=== PATIENT | male | born 1945 | race Caucasian/White ===

== ENCOUNTER 2024-10-20 19:03 | Observation (INO) | payer MEDICARE, OTHER ==
[~2024-10-20] VITALS: Ht 188 cm; Wt 76.5 kg
[~2024-10-20 19:03] MED LIST: ASPI325 PO; Aspir 8181 MG PO; Percocet 5-3251 EACH PO
[2024-10-20] MEDS ORDERED: Pantoprazole Sodium 40 MG Injection IV ONE (19:40)
[2024-10-20 19:48] LABS: BASOPHILS ABSOLUTE AUTO 0.08 K/mm3 (0.00-0.23); BASOPHILS PERCENT AUTO 1 % (0-2); EOSINOPHILS ABSOLUTE AUTO 0.03 K/mm3 (0.00-0.68); EOSINOPHILS PERCENT AUTO 0 % (0-6); Hematocrit 23.7 % (37.0-53.0); Hemoglobin 6.3 g/dL (13.5-17.5); IMMATURE GRAN ABSOLUTE AUTO 0.03 K/mm3 (0.00-0.10); IMMATURE GRAN PERCENT AUTO 0 % (0-1); LYMPHOCYTES ABSOLUTE AUTO 0.99 K/mm3 (0.84-5.20); LYMPHOCYTES PERCENT AUTO 12 % (21-46); MONOCYTES ABSOLUTE AUTO 0.89 K/mm3 (0.16-1.47); MONOCYTES PERCENT AUTO 11 % (4-13); Mean Corpuscular HGB 18.9 pg (26.0-34.0); Mean Corpuscular HGB Conc 26.6 g/dL (31.5-36.5); Mean Corpuscular Volume 71 fL (80-100); Mean Platelet Volume 10.5 fL (9.1-12.4); NEUTROPHILS ABSOLUTE AUTO 5.99 K/mm3 (1.96-9.15); NEUTROPHILS PERCENT AUTO 75 % (41-73); NRBC ABSOLUTE 0.05 K/mm3 (0.00-0.02); NRBC Auto 0.6 /100 WBC (0.0-0.2); Platelet Count 371 K/mm3 (150-400); RDW Coefficient Variation 19.3 % (11.7-14.2); Red Blood Cell Count 3.33 M/mm3 (4.30-5.90); White Blood Cell Count 8.01 K/mm3 (4.00-11.30)
[2024-10-20 20:00] LABS: Albumin, Blood 3.7 g/dL (3.4-5.0); Albumin/Globulin Ratio 0.9 (0.8-1.8); Bilirubin, Direct 0.3 mg/dL (0.0-0.3); Bilirubin, Total 0.7 mg/dL (0.1-1.0); Bun/Creatinine Ratio 24.7 (12.0-20.0); Creatinine, Blood 0.89 mg/dL (0.60-1.20); Globulin, Blood 3.9 g/dL (2.2-4.0); Potassium, Blood 4.2 mmol/L (3.5-5.5); Total Protein, Blood 7.6 g/dL (6.4-8.2)
[2024-10-20 20:04] LABS: International Normalized Ratio 1.3; Prothrombin Time Results 13.6 Sec (9.7-11.5)
[2024-10-20] MEDS ORDERED: NS 1,000 ML IV ONE (21:30)
[2024-10-20] MEDS ORDERED: Albuterol 2.5 MG/3 ML VIAL INH PRN (21:55)
[2024-10-20] MEDS ORDERED: Ondansetron HCl 2 MG / ML 2ML Vial IV PRN (21:55)
[2024-10-20] MEDS ORDERED: FLU VACC TS2024-25(6MOS UP)/PF 45 MCG/0.5 ML SYRINGE IM ONE (21:55)
[2024-10-20 22:01] LABS: IMMATURE RETIC FRACTION 28.7 % (2.3-16.0); RETIC HGB EQUIVALENT 15.5 pg (28.20-36.60); RETICULOCYTE ABSOLUTE 0.0815 M/mm3 (0.0200-0.1100); RETICULOCYTE COUNT PERCENT 2.47 % (0.50-2.50)
[2024-10-20 22:40] LABS: Percent Saturation 3.2 % (20.0-50.0)
[2024-10-20 23:31] LABS: Influenza A, PCR NEGATIVE (NEGATIVE); Influenza B, PCR NEGATIVE (NEGATIVE); Resp Syncytial Virus, PCR NEGATIVE (NEGATIVE); SARS-Cov-2 (COVID-19) PCR, MMC NEGATIVE (NEGATIVE)
[2024-10-21] VITALS (9 sets, daily range): BP systolic 93–113; BP diastolic 68–80
[2024-10-21] MEDS ORDERED: B-12500 MC2 PO (02:06)
[2024-10-21] MEDS ORDERED: FERSU300 PO (02:06)
[2024-10-21] MEDS ORDERED: FOLI1 PO (02:07)
[2024-10-21] MEDS ORDERED: ASCO500 PO (02:07)
--- NOTE | 2024-10-21 04:45 | NUR ---
NOC SUMMARY- PT ARRIVED TO ROOM IN NO DISTRESS. PT DOES EXPERIENCE DYSPNEA ON MINIMAL EXERTION. PT HAS DENIED AND DISCOMFORT OR N/V. PT TOLERATED TRANSFUSIONS WELL. PT IS VOIDING VIA URINAL. PT IN GOOD SPIRITS THIS AM. CALL LIGHT IN REACH AND BED ALARM ON.
[2024-10-21 05:51] LABS: Hematocrit 25.7 % (37.0-53.0); Hemoglobin 7.4 g/dL (13.5-17.5); Mean Corpuscular HGB 21.1 pg (26.0-34.0); Mean Corpuscular HGB Conc 28.8 g/dL (31.5-36.5); Mean Corpuscular Volume 73 fL (80-100); Mean Platelet Volume 10.2 fL (9.1-12.4); NRBC ABSOLUTE 0.06 K/mm3 (0.00-0.02); NRBC Auto 0.7 /100 WBC (0.0-0.2); Platelet Count 286 K/mm3 (150-400); RDW Standard Deviation 52.5 fL (35.1-46.3); White Blood Cell Count 8.32 K/mm3 (4.00-11.30)
[2024-10-21 06:26] LABS: Albumin, Blood 3.1 g/dL (3.4-5.0); Albumin/Globulin Ratio 0.9 (0.8-1.8); Bilirubin, Total 1.8 mg/dL (0.1-1.0); Bun/Creatinine Ratio 25.5 (12.0-20.0); Calcium, Blood 8.3 mg/dL (8.5-10.1); Creatinine, Blood 0.78 mg/dL (0.60-1.20); Globulin, Blood 3.4 g/dL (2.2-4.0); Potassium, Blood 3.6 mmol/L (3.5-5.5); Total Protein, Blood 6.5 g/dL (6.4-8.2)
[2024-10-21] MEDS ORDERED: Folic Acid 1 MG in NS 50 ML IV SCH (09:00)
[2024-10-21] MEDS ORDERED: Cyanocobalamin 1000 MCG/ML 1ML Vial IM SCH (09:00)
[2024-10-21] MEDS ORDERED: Iron Dextran 50 MG / ML 2ML Vial IV ONE (10:00)
[2024-10-21] MEDS ORDERED: Iron Dextran 975 MG in NS 250 ML IV ONE (11:00)
--- NOTE | 2024-10-21 17:34 | NUR ---
SHIFT SUMMARY PT IS A/OX4, SBA W/ FWW AND GB. PT IS IMPULSIVE, BED ALARM ON. PT DOES HAVE DYSPNEA W/ EXERTION, PRN BREATHING TREATMENTS GIVEN PER RT. VSS, PT IS HYPOTENSIVE W/ SYSTOLIC 90-110, MAP >65 AND PT DENIES DIZZINESS. IRON GIVEN ORDERED W/ NO REACTION SYMPTOMS NOTED. PT STATES SYMPTOMS HAVE NOT WORSENED SINCE ADMISSION. NO DARK STOOLS NOTED THIS SHIFT, PT VOIDING APPROPRIATELY IN URINAL. FAMILY AT BEDSIDE MOST OF SHIFT. PT CALLING APPROPRIATELY.
--- NOTE | 2024-10-22 04:29 | NUR ---
PT ARRIVED TO [facility] VIA HOSPITAL BED. ON RA. CALL LT PLACED WITHIN REACH. BED ALARM ON.
--- NOTE | 2024-10-22 04:29 | NUR ---
PT TRANSFERRED TO 326 DUE TO NEED FOR SURGICAL BED AVAILABLE.NO DISTRESS,TRANSFERRED PER BED.
[2024-10-22 04:32] VITALS: BP 99/70
[2024-10-22 04:47] LABS: BASOPHILS ABSOLUTE AUTO 0.11 K/mm3 (0.00-0.23); BASOPHILS PERCENT AUTO 1 % (0-2); EOSINOPHILS ABSOLUTE AUTO 0.26 K/mm3 (0.00-0.68); EOSINOPHILS PERCENT AUTO 3 % (0-6); Hematocrit 24.9 % (37.0-53.0); Hemoglobin 7.2 g/dL (13.5-17.5); IMMATURE GRAN ABSOLUTE AUTO 0.08 K/mm3 (0.00-0.10); IMMATURE GRAN PERCENT AUTO 1 % (0-1); LYMPHOCYTES ABSOLUTE AUTO 1.16 K/mm3 (0.84-5.20); LYMPHOCYTES PERCENT AUTO 14 % (21-46); MONOCYTES ABSOLUTE AUTO 1.25 K/mm3 (0.16-1.47); MONOCYTES PERCENT AUTO 15 % (4-13); Mean Corpuscular HGB 21.1 pg (26.0-34.0); Mean Corpuscular HGB Conc 28.9 g/dL (31.5-36.5); Mean Corpuscular Volume 73 fL (80-100); Mean Platelet Volume 10.5 fL (9.1-12.4); NEUTROPHILS ABSOLUTE AUTO 5.61 K/mm3 (1.96-9.15); NEUTROPHILS PERCENT AUTO 66 % (41-73); NRBC Auto 1.2 /100 WBC (0.0-0.2); Platelet Count 277 K/mm3 (150-400); RDW Coefficient Variation 19.9 % (11.7-14.2); RDW Standard Deviation 51.3 fL (35.1-46.3); Red Blood Cell Count 3.42 M/mm3 (4.30-5.90); White Blood Cell Count 8.47 K/mm3 (4.00-11.30)
[2024-10-22 05:07] LABS: Bun/Creatinine Ratio 17.5 (12.0-20.0); Calcium, Blood 8.1 mg/dL (8.5-10.1); Creatinine, Blood 0.86 mg/dL (0.60-1.20); Potassium, Blood 3.1 mmol/L (3.5-5.5)
[2024-10-22] MEDS ORDERED: FERSU300 PO (05:59)
[2024-10-22] MEDS ORDERED: B-121000 MC7 PO (06:00)
[2024-10-22] MEDS ORDERED: ASCO500 PO (06:00)
[2024-10-22] MEDS ORDERED: FOLI1 PO (06:00)
--- NOTE | 2024-10-22 06:03 | NUR ---
SHIFT SUMMARY: TRANSFER FROM RM 211 AT 0430. ALERT AND ORIENTED X 4. [place]. ON RA. SOB WITH ACTIVITY. CAN BE IMPULSIVE AT TIMES, BED ALARM ON. HGB 7.2, HCT 24.9. HAS RECEIVED TWO UNITS THIS ADMISSION. PT DOES CALL APPROPRIATELY. WILL CONTINUE TO PROVIDE CARE UNTIL SHIFT REPORT TO ONCOMING NURSE. CALL LT IN REACH. BED ALARM ON.
[2024-10-22 07:29] VITALS: BP 111/88
[2024-10-22] MEDS ORDERED: Potassium Chloride 20 MEQ TabCR PO ONE (07:55)
[2024-10-22] MEDS ORDERED: Hair, Skin & N1 EACH PO (11:30)
--- NOTE | 2024-10-22 11:57 | NUR ---
SUMMARY/DISCHARGE PT DISCHARGED TO HOME WITH HOME HEALTH AND THE DAUGHTER, RESOURCES GIVEN TO THE DAUGHTER FROM CARE MANAGEMENT, PT TAKEN OUT SAFELY VIA WHEELCHAIR BY THE COMPLIANCE LEAD, ACCOMPANIED BY THE DAUGHTER
[2024-10-27 16:23] LABS: GASTRIC PARIETAL CELL AB,IGG 21.8 Units (0.0-24.9)
== END 2024-10-22 11:56 | disposition home health service (06) ==
LOC: ER 19:03 → ERHOLD 19:04 → SURS 19:04 → MEDS 10-22 04:29
PROVIDERS: Internal Medicine; Nurse Practitioner Acute Care; Student in an Organized Health Care Education/Training Program; ADMIT Internal Medicine
DX: D50.9 Iron deficiency anemia, unspecified (principal); J45.20 Mild intermittent asthma, uncomplicated; J90 Pleural effusion, not elsewhere classified; J98.11 Atelectasis; F17.210 Nicotine dependence, cigarettes, uncomplicated; Z79.82 Long term (current) use of aspirin
CPT/HCPCS: 0241U; 36415; 36430; 74177; 80048; 80053; 82248; 82272; 82607; 82728; 82746; 83036; 83516; 83540; 83550; 85025; 85027; 85045; 85610; 86850; 86900; 86901; 86923; 93005; 93010; 94640; 94664; 94760; 96365; 96367; 96372; 96375; 96376; 99285-25; A9270; G0378; J1750; J2470; J3420; J7030; J7050; P9016; Q9967

== ENCOUNTER 2024-10-25 10:53 | Inpatient (IN) | payer MEDICARE, OTHER ==
[~2024-10-25] VITALS: Ht 182.9 cm; Wt 73.0 kg
[~2024-10-25 10:53] MED LIST changes: +ASCO500 PO; +B-121000 MC7 PO; +B-12500 MC2 PO; +FERSU300 PO; +FOLI1 PO; +Hair, Skin & N1 EACH PO
[2024-10-25] MEDS ORDERED: Ipratropium/Albuterol SulF 2.5-0.5MG/3 ML Amp INH PRN (11:15)
[2024-10-25 11:40] LABS: BASOPHILS ABSOLUTE AUTO 0.13 K/mm3 (0.00-0.23); BASOPHILS PERCENT AUTO 1 % (0-2); EOSINOPHILS PERCENT AUTO 1 % (0-6); Hematocrit 30.8 % (37.0-53.0); Hemoglobin 8.4 g/dL (13.5-17.5); IMMATURE GRAN ABSOLUTE AUTO 0.16 K/mm3 (0.00-0.10); IMMATURE GRAN PERCENT AUTO 1 % (0-1); LYMPHOCYTES ABSOLUTE AUTO 0.89 K/mm3 (0.84-5.20); LYMPHOCYTES PERCENT AUTO 6 % (21-46); MONOCYTES ABSOLUTE AUTO 1.61 K/mm3 (0.16-1.47); MONOCYTES PERCENT AUTO 11 % (4-13); Mean Corpuscular HGB 21.5 pg (26.0-34.0); Mean Corpuscular HGB Conc 27.3 g/dL (31.5-36.5); Mean Corpuscular Volume 79 fL (80-100); Mean Platelet Volume 10.6 fL (9.1-12.4); NEUTROPHILS PERCENT AUTO 80 % (41-73); NRBC ABSOLUTE 0.12 K/mm3 (0.00-0.02); NRBC Auto 0.8 /100 WBC (0.0-0.2); Platelet Count 348 K/mm3 (150-400); RDW Coefficient Variation 24.4 % (11.7-14.2); RDW Standard Deviation 56.8 fL (35.1-46.3); White Blood Cell Count 15.19 K/mm3 (4.00-11.30)
[2024-10-25 11:47] LABS: Albumin, Blood 3.3 g/dL (3.4-5.0); Albumin/Globulin Ratio 0.8 (0.8-1.8); Bilirubin, Total 0.8 mg/dL (0.1-1.0); Bun/Creatinine Ratio 14.2 (12.0-20.0); Calcium, Blood 8.9 mg/dL (8.5-10.1); Creatinine, Blood 0.78 mg/dL (0.60-1.20); Potassium, Blood 3.4 mmol/L (3.5-5.5); Total Protein, Blood 7.3 g/dL (6.4-8.2)
[2024-10-25] MEDS ORDERED: Furosemide 10 MG/ML 10ML Vial IV ONE (12:45)
[2024-10-25] MEDS ORDERED: Aspirin 325 MG Tab PO ONE (13:00)
[2024-10-25] MEDS ORDERED: Magnesium Hydroxide Conc 10 ML UDC PO PRN (13:15)
[2024-10-25] MEDS ORDERED: Ondansetron HCl 2 MG / ML 2ML Vial IV PRN (13:15)
[2024-10-25] MEDS ORDERED: FLU VACC TS2024-25(6MOS UP)/PF 45 MCG/0.5 ML SYRINGE IM ONE (13:20)
[2024-10-25] MEDS ORDERED: Potassium Chloride 40 MEQ in NS 250 ML IV ONE (13:30)
[2024-10-25] MEDS ORDERED: NS 1,000 ML IV ONE (13:50)
[2024-10-25] MEDS ORDERED: Nitroglycerin Patch 0.2MG / HR TOP STA (14:25)
[2024-10-25] MEDS ORDERED: Metoprolol Tartrate 1 MG/ML 5 ML VIAL IV PRN (14:40)
[2024-10-25 14:51] LABS: Anti-Xa UFH, PHA Monitoring <0.10 IU/mL; International Normalized Ratio 1.12; Prothrombin Time Results 11.9 Sec (9.7-11.5)
[2024-10-25] MEDS ORDERED: Heparin Sodium,Porcine/0.5 NS 500 ML IV SCH (15:00)
[2024-10-25] MEDS ORDERED: Metoprolol Succinate 25 MG TABCR PO SCH (15:00)
[2024-10-25] MEDS ORDERED: Aspirin 81 MG Chew PO SCH (15:00)
[2024-10-25 15:10] VITALS: BP 113/76
[2024-10-25] MEDS ORDERED: Furosemide 10 MG/ML 4ML Vial IV SCH (18:00)
--- NOTE | 2024-10-25 18:03 | NUR ---
ADMISSION/SHIFT SUMMARY: PT IS A NEW ADMIT, ARRIVING TO UNIT AT APPROX 1445. PT IS A&Ox4, COOPERATIVE W/CARE, TRANSFERS SELF F/GURNEY TO BED W/SBA, GENERALLY WEAK, BED ALARM ON FOR SAFETY. O2 SATS MAINTAINED >93% ON 4 L/MIN VIA NC, CPAP ON SB IN ROOM. RESPIRATIONS ARE EVEN AND UNLABORED BUT PT WILL HAVE EPISODES WHERE HE CLAIMS TO FEEL MORE SOB AND HAS MORE PAIN IN CHEST, RESPIRATIONS BECOME MORE LABORED, THESE EPISODES SELF RESOLVE W/NO CHANGE TO TELEMETRY OR O2 SATS. NITRO PATCH APPLIED PER EMAR. AFIB ON MONITOR, RATE CONTROLLED. PT DESCRIBES CHEST PAIN FEELING LIKE "SOMEONE IS PUSHING ON IT". TROPONINS ARE BEING TRENDED, PROVIDER NOTIFIED OF RESULTS, PLAN FOR ANGIOGRAM TOMORROW, PT TO BE NPO AT MIDNIGHT, HEPARIN INFUSION PER ORDERS. PT RESTING IN BED, CALL LIGHT IN REACH.
[2024-10-25 20:21] VITALS: BP 93/66
--- NOTE | 2024-10-25 20:37 | NUR ---
ASSUMPTION OF CARE PT SITTING UP IN BED,BEDSIDE REPORT COMPLETED WITH DAYSHIFT NURSE.PT ON 4L OF OXYGEN VIA NASAL CANNULA,HEPARIN GTT INFUSING AT 15UNITS/KG/HR AT 23.1ML/HR.TEACHING ON THE SS OF BLEEDING ANDQ6H BLOOD DRAWS COMPLETED.PT VERBALIZES UNDERSTANDING.PT DENIES PAIN,DENIES NAUSEA,DENIES CHEST PAIN,DENIES SOB AT REST,DENIES NEEDS AT THIS TIME.CALL LIGHT AND PT'S ITEMS WITHIN REACH,WILL CONTINUE TO MONITOR.
[2024-10-25] MEDS ORDERED: Ferrous Sulfate 325 MG Tab PO SCH (21:00)
[2024-10-25] MEDS ORDERED: Heparin Sodium 5000 Units/ML 1ML MDV IV ONE (23:50)
[2024-10-25] MEDS ORDERED: Dose Adjust by Pharmacy XX STA (23:52)
[2024-10-26] VITALS (9 sets, daily range): BP systolic 90–104; BP diastolic 58–78
[2024-10-26 06:27] LABS: BASOPHILS ABSOLUTE AUTO 0.09 K/mm3 (0.00-0.23); BASOPHILS PERCENT AUTO 1 % (0-2); EOSINOPHILS ABSOLUTE AUTO 0.23 K/mm3 (0.00-0.68); EOSINOPHILS PERCENT AUTO 2 % (0-6); Hematocrit 26.4 % (37.0-53.0); Hemoglobin 7.4 g/dL (13.5-17.5); IMMATURE GRAN PERCENT AUTO 1 % (0-1); LYMPHOCYTES ABSOLUTE AUTO 1.32 K/mm3 (0.84-5.20); LYMPHOCYTES PERCENT AUTO 11 % (21-46); MONOCYTES ABSOLUTE AUTO 1.84 K/mm3 (0.16-1.47); MONOCYTES PERCENT AUTO 15 % (4-13); Mean Corpuscular HGB 22.2 pg (26.0-34.0); Mean Corpuscular Volume 79 fL (80-100); Mean Platelet Volume 10.4 fL (9.1-12.4); NEUTROPHILS ABSOLUTE AUTO 8.53 K/mm3 (1.96-9.15); NEUTROPHILS PERCENT AUTO 71 % (41-73); NRBC ABSOLUTE 0.06 K/mm3 (0.00-0.02); NRBC Auto 0.5 /100 WBC (0.0-0.2); Platelet Count 269 K/mm3 (150-400); RDW Coefficient Variation 26.1 % (11.7-14.2); RDW Standard Deviation 57.9 fL (35.1-46.3); Red Blood Cell Count 3.34 M/mm3 (4.30-5.90); White Blood Cell Count 12.11 K/mm3 (4.00-11.30)
[2024-10-26 06:47] LABS: Bun/Creatinine Ratio 15.7 (12.0-20.0); Calcium, Blood 8.2 mg/dL (8.5-10.1); Creatinine, Blood 0.83 mg/dL (0.60-1.20); Potassium, Blood 3.4 mmol/L (3.5-5.5)
--- NOTE | 2024-10-26 06:53 | NUR ---
SHIFT SUMMARY PT HAS BEEN SLEEPING ON/OFF,WOKE UP CONFUSED EASILY REDIRECTABLE.PT DENIES PAIN,DENIES NEEDS.WILL GIVE REPORT TO DAYSHIFT NURSE.CALL LIGHT AND PT'S ITEMS WITHIN REACH.
[2024-10-26] MEDS ORDERED: Dose Adjust by Pharmacy XX STA (07:37)
[2024-10-26] MEDS ORDERED: Potassium Chloride 40 MEQ in NS 250 ML IV ONE (07:55)
[2024-10-26] MEDS ORDERED: Multivitamins/Minerals TAB PO SCH (09:00)
[2024-10-26] MEDS ORDERED: Enoxaparin 40 MG/0.4 ML SYR SC SCH (09:00)
[2024-10-26] MEDS ORDERED: Ascorbic Acid 500 MG Tab PO SCH (09:00)
[2024-10-26] MEDS ORDERED: Cyanocobalamin 500 MCG Tab PO SCH (09:00)
--- NOTE | 2024-10-26 09:13 | NUR ---
ASSUMPTION OF CARE ASSUMED CARE OF PATIENT AT 0700, BEDSIDE SHIFT REPORT RECEIVED FROM EVE RN. PT RESTING IN BED TRANSFERED TO BEDSDIE RECLINER. PT ALERT AND ORIENTED X4. PT ANSWERS QUESTIONS APPROPRIATELY, FOLLOWS DIRECTION WHEN PROMPTED AND IS ABLE TO MAKE HIS NEEDS KNOWN. PT WEAK, MOVES EXTREMITIES EQUALLY BILATERALLY. PT 2 PERSON ASSIST. PT [place]. HR 70-80'S SINUS, MAP >65, PT DENEIS CP/PRESSURE. PT ON 4LPM VIA NC, OXYGEN SATURATION >92%. ABDOMEN SOFT, BOWEL TONES ACTIVE THROGUHOUT. PT DENIES N/V. MALE PUREWICK IN PLACE DRAINING YELLOW URINE. PIV IN PLACE TO RAC, LAC AND LFA SL. PT IN BEDSIDE RECLINER WITH CHAIR ALARM ON. CARE CONTINUES.
[2024-10-26] MEDS ORDERED: NS 500 ML IV SCH (10:15)
[2024-10-26] MEDS ORDERED: Albuterol 2.5 MG/3 ML VIAL INH PRN (11:45)
[2024-10-26] MEDS ORDERED: LORazepam 2 MG/ML 1ML Injection IV ONE (12:25)
[2024-10-26] MEDS ORDERED: Furosemide 10 MG/ML 4ML Vial IV STA (13:48)
--- NOTE | 2024-10-26 13:52 | NUR ---
PT UPDATE PT BECOMING INCREASINGLY ANXIOUS WITH WORSENING SOB. RT TO BEDSIDE TO ADMINISTER BREATHING TREATMENT. AFTER TREATMENT PT STILL COMPLAINING OF SOB, OXYGEN SATURATION >92%, LUNG SOUNDS CLEAR. CALL PLACED TO , ORDER RECEIVED FOR ATIVAN IV, SEE EMAR FOR MORE DETAILS. ATIVAN ADMINISTERED WITH NO EFFECT. PT CONTINUES TO COMPLAIN OF SOB, RESTLESS IN BED. RT CALLED FOR CPAP PLACEMENT, DR. LI CALLED, ORDERS RECEIVED FOR XRAY AND ADDITIONAL DOSE OF LASIX, SEE EMAR FOR MORE INFORMATION. BED IN LOWEST POSITION, PT DAUGHTER AT THE BEDSIDE. CARE CONTINUES.
[2024-10-26 14:40] LABS: Hematocrit 30.7 % (37.0-53.0); Hemoglobin 8.8 g/dL (13.5-17.5)
--- NOTE | 2024-10-26 16:38 | NUR ---
CLARIFICATION OF CODE STATUS AND SUPPORTIVE VISIT LISSY SITTING UP IN CHAIR WITH O2 VIA NC IN PLACE. HE IS A/O X4. ABLE TO MAKE NEEDS KNOWN. RESP EUL. AFTER TALKING FOR APX 1 MIN, DYSPNEA NOTED, SPO2 UNCHANGED, 5-10 SECONDS TO RECOVER AND RESUME CONVERSATION. EDUCATION ON CPR VS DNR PROVIDED. PT ELECTED FOR DNR. REVIEWED VARIOUS LEVELS OF CARE OUTLINED ON A POLST FORM. LISSY DOES NOT WANT INTUBATION OR FEEDING TUBE. HE WANTS SELECTIVE TREATMENT. POLST FORM TO BE COMPLETED PRIOR TO D/C HOME. ORDER OBTAINED FROM PROVIDER TO CHANGE CODE STATUS FROM FULL TO DNR. ORDER PLACED ACCORDINGLY. RT IN ROOM TO SET UP CPAP. DTR, MISAEL ARREGUIN (PHONE [phone]) AT BEDSIDE FOR TODAYS VISIT. 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 PRIOR TO LAST WEEK, HE WAS WORKING, AMBULATING UNASSISTED, SHOPPING FOR HIMSELF, DRIVING AND INDEPENDENT FOR ALL ADL'S/IADL'S. PT WOULD BENEFIT FROM CONTINUING EDUCATION RE: CHF. PC TO REMAIN AVAILABLE NEEDED.
--- NOTE | 2024-10-26 16:56 | NUR ---
Patient is sitting on a chair and has a breathing mask on and he was very sleepy which made communication challenging. I spent time with his dtr, Mattie, who told me about the patient's 22 yr career, the fact that he is still working and that his spouse, Mattie's mother in 2023. He lives alone and all his grown kids do not live in the area. I learn about the patient's alevism roots, his spouse's Jehovah Witness beliefs and how he never became a Witness. I Provided therapeutic listening and a calming presence. I will continue to remian available.
--- NOTE | 2024-10-26 19:17 | NUR ---
SHIFT SUMAMRY PT RESITNG IN BED, ALERT AND ORIENTED X4. PT ASNWERS QUESITONS APPROPRAITELY, FOLLOWS DIRECTION WHEN PROMPTED AND IS ABLE TO MAKE HIS NEEDS KNOWN. PT MOVES EXTREMITIES EQUALLY BILATERALLY, AMBULATES IN THE ROOM WITH NURSE ASSIST. HR 60-80'S, PT DENIES CP/PRESSURE, MAP >65. PT ON 4LPM VIA NC, OXYGEN SATURATION >92%, PT WOB HAS IMPROVED THIS SHIFT. ABDOMEN SOFT, BOWEL TONES ACTIVE THROUGHOUT. PUREWICK IN PLACE DRAINING YELLOW URINE TO GRAVITY. PIV IN PLACE TO RAC, LAC AND LFA SL. BED IN LOWEST POSITION, CALL LIGHT WITHIN REACH. PT FAMILY AT THE BEDSIDE. CARE CONTINUES.
--- NOTE | 2024-10-26 21:39 | NUR ---
ASSUMPTION OF CARE ASSUMED CARE OF PT AT 1900,BEDSIDE REPORT COMPLETED WITH DAYSTNFT NURSE.PT SITTING UP IN BED,VISITORS AT BEDSIDE.PT DENIES PAIN,DENIES SOB,OXYGEN TITRATED DOWN TO 2L,OXYGEN SATURATION 95%.PLAN OF CARE REVIEWED WITH PT AND FAMILY.CALL LIGHT AND PT'S ITEMS WITHIN REACH.BED ALARM ACTIVATED.PT DENIES NEEDS,WILL CONTINUE TO MONITOR.
[2024-10-27 00:16] VITALS: BP 93/49
[2024-10-27 00:22] VITALS: BP 95/71
[2024-10-27 04:07] LABS: Hematocrit 29.8 % (37.0-53.0); Hemoglobin 8.5 g/dL (13.5-17.5); Mean Corpuscular HGB 22.8 pg (26.0-34.0); Mean Corpuscular HGB Conc 28.5 g/dL (31.5-36.5); Mean Corpuscular Volume 80 fL (80-100); Mean Platelet Volume 10.3 fL (9.1-12.4); NRBC ABSOLUTE 0.02 K/mm3 (0.00-0.02); NRBC Auto 0.2 /100 WBC (0.0-0.2); Platelet Count 270 K/mm3 (150-400); RDW Coefficient Variation 27.1 % (11.7-14.2); RDW Standard Deviation 63.8 fL (35.1-46.3); Red Blood Cell Count 3.72 M/mm3 (4.30-5.90); White Blood Cell Count 10.64 K/mm3 (4.00-11.30)
[2024-10-27 04:11] VITALS: BP 95/56
[2024-10-27 04:49] LABS: Bun/Creatinine Ratio 18.5 (12.0-20.0); Calcium, Blood 8.5 mg/dL (8.5-10.1); Creatinine, Blood 0.81 mg/dL (0.60-1.20); Potassium, Blood 3.3 mmol/L (3.5-5.5)
--- NOTE | 2024-10-27 06:35 | NUR ---
SHIFT SUMMARY PT HAS BEEN SLEEPING MOST OF THE NIGHT.PRN BREATHING TREATMENT GIVEN X1 FOR SOB,OXYGEN TITRATED DOWN TO 2L.PT DENIES PAIN,DENIES NEEDS AT THIS TIME.CALL LIGHT AND PT'S ITEMS WITHIN REACH.WILL GIVE DETAILED REPORT TO DAYSHIFT NURSE.
[2024-10-27 07:53] VITALS: BP 91/69
[2024-10-27 11:28] VITALS: BP 98/62
[2024-10-27] MEDS ORDERED: Potassium Chloride 20 MEQ TabCR PO ONE (12:00)
[2024-10-27] MEDS ORDERED: Sod Ferric Gluc Complx/Sucrose 125 MG in NS 100 ML IV SCH (16:00)
--- NOTE | 2024-10-27 16:54 | NUR ---
SHIFT SUMMARY: PT ALERT AND ORIENTED X3, ABLE TO FOLLOW COMMANDS AND MAKE NEEDS KNOWN. FORGETFUL AT TIMES. POOR HISTORIAN. [place]. BP AND HR STABLE. AFEBRILE. SPO2 >96% ON ROOM AIR. LUNG SOUNDS DIM IN BASES. RESPIRATIONS EVEN AND UNLABORED AT REST. ABD SOFT, NON TENDER, BOWEL SOUNDS +. PULSES STRONG AND EQUAL THROUGHOUT. PT ONE PERSON ASSIST TO AND FROM BATHROOM. BED ALARM ON FOR SAFETY. GI CONSULT PLACED THIS SHIFT FOR ANEMIA. FAMILY AT BEDSIDE THROUGHOUT THE DAY, UPDATED ON PT PLAN OF CARE. BED IN LOW, CALL LIGHT IN REACH, WILL REPORT TO ONCOMING RN.
--- NOTE | 2024-10-27 19:30 | NUR ---
ASSUMPTION OF CARE ASSUMED PT'S CARE AT 1900,BEDSIDE REPORT COMPLETED WITH PREVIOUS NURSE.VISITORS AT BEDSIDE.PT SITTING UP IN BED,ON RA.STATES THAT HE IS FEELING BETTER.PLAN OF CARE REVIEWED.PT DENIES PAIN,DENIES SOB,DENIES NEEDS.CALL LIGHT AND PT'S ITEMS WITHIN REACH.WILL CONTINUE TO MONITOR.
[2024-10-27 19:50] VITALS: BP 101/71
[2024-10-28] VITALS (10 sets, daily range): BP systolic 92–110; BP diastolic 62–77
[2024-10-28 04:44] LABS: Hematocrit 32.7 % (37.0-53.0); Hemoglobin 9.5 g/dL (13.5-17.5); Mean Corpuscular HGB 23.2 pg (26.0-34.0); Mean Corpuscular HGB Conc 29.1 g/dL (31.5-36.5); Mean Corpuscular Volume 80 fL (80-100); Mean Platelet Volume 10.3 fL (9.1-12.4); Platelet Count 308 K/mm3 (150-400); RDW Coefficient Variation 28.4 % (11.7-14.2); RDW Standard Deviation 70.1 fL (35.1-46.3); Red Blood Cell Count 4.09 M/mm3 (4.30-5.90); White Blood Cell Count 9.98 K/mm3 (4.00-11.30)
[2024-10-28 05:00] LABS: Anion Gap 11 mmol/L (3-11); Blood Urea Nitrogen 19 mg/dL (8-24); Bun/Creatinine Ratio 24.4 (12.0-20.0); CO2, Blood 26 mmol/L (21-32); Chloride, Blood 107 mmol/L (98-108); Creatinine, Blood 0.78 mg/dL (0.60-1.20); Glomerular Filtration Rate 90 (60-); Glucose, Blood 104 mg/dL (70-99); Magnesium, Blood 2.7 mg/dL (1.6-2.4); Phosphorus, Blood 3.1 mg/dL (2.5-4.9); Potassium, Blood 3.8 mmol/L (3.5-5.5); Sodium, Blood 140 mmol/L (136-145)
--- NOTE | 2024-10-28 06:41 | NUR ---
SHIFT SUMMARY PT HAS BEEN SLEEPING ON/OFF.OXYGEN SATURATION >95% ON RA,NO C/O SOB OR CHEST PAIN.HAS BEEN GETTING TO THE EDGE OF THE BED INDEPENDENTLY TO USE THE VOID IN THE URINAL.PT AWAKE,RESTING IN BED.DENIES PAIN,DENIES NEEDS AT THIS TIME.CALL LIGHT AND PT'S ITEMS WITHIN REACH.WILL PASS REPORT TO DAYSHIFT NURSE.
[2024-10-28] MEDS ORDERED: Lisinopril 5 MG Tab PO SCH (09:00)
--- NOTE | 2024-10-28 09:33 | NUR ---
DR PETERS TO BEDSIDE WHILE DOING MORNING MEDICATIONS. BP SOFT BUT STABLE. SHE WOULD LIKE TO HOLD THE MORNING LASIX AND LISINOPRIL. SHE DID OKAY TO GIVE THE 12.5 METOPROLOL AND STATED SHE WILL DISCUSS PARAMETERS W/ DR. TINEO. SEE NOTES FOR UPDATES.
[2024-10-28] MEDS ORDERED: Furosemide 10 MG / ML 2ML Vial IV SCH ×2 (09:55→18:00)
--- NOTE | 2024-10-28 16:55 | NUR ---
SHIFT SUMMARY THE PT IS A&OX3-4, BUT IS FORGETFULL AND GETTING RESTLESS IN THE ROOM. HE IS CONCRETE IN HIS THINKING AND DOES NOTE WANT HELP FROM STAFF. HE CAN GETS IRRITABLE WHEN TRYING TO EDUCATE ABOUT USING THE URINAL AND CALLING FOR HELP. THE PT WORKED WITH O.T AND P.T. AND IS A 1P SBA W/ FWW FOR STABILITY. HE HAS AMBULATED THE UNIT MULTIPLE TIMES T/O THE SHIFT. ON TELE HE IS SB/SR 50'S-80'S W/ PAC'S AND PVC'S. BP HAS BEEN SOFT BUT STABLE. DR. MARTINES ADDED PARAMETERS TO THE MEDICATIONS. HIS LASIX WAS DECREASED FROM 40MG BID TO 20MG DAILY. OUTPUT HAS NOT BEEN ACCURATE BECAUSE THE PT HAS SPILT HIS URINAL AND HAD SOME INC EPISODES. NO BOWEL MOVEMENT YET THIS SHIFT. HE HAS BEEN ON RA TODAY W/ SP02 >93%. DR. DELGADO SAW THE PT TODAY AND PLAN IS TO CONTINUE THE CLEAR LIQUID DIET UNTIL 2300 THEN HE WILL SWITCH TO WATER AND ICE ONLY. PT WILL BOWEL PREP IN THE MORNING. NPO AT 1200 1/30 FOR EGD AND COLONOSCOPY. THE PT'S DAUGHTER HAS BEEN AT BEDSIDE AND UPDATED ON CARE. NO ACUTE EVENTS. CHAIR AND BED ALARMS REMAIN INTACT. SEE NOTES FOR ANY UPDATES.
[2024-10-29] VITALS (15 sets, daily range): BP systolic 81–123; BP diastolic 58–78
[2024-10-29] MEDS ORDERED: Sodium, Potassium,Mag Sulfates 354 ML PO SCH (05:00)
--- NOTE | 2024-10-29 06:38 | NUR ---
SHIFT SUMMARY NO ACUTE EVENTS THIS SHIFT, VSS, AFEBRILE, FOLLOWS COMMANDS, ABLE TO MAKE NEEDS KNOWN, PT WOKE UP AT [address] AND SITUATION, LOOKING FOR HIS OFFICE AND NEEDING TO COMPLETE AT TASK, EASILY REORIENTED, STATES, " IM EVEN WORKING IN MY DREAMS!", SURE PREP GIVEN AT 0500, PT DRANK 100% , AND IN BATHROOM AT THIS TIME WITH NOTED LOOSE BM,
[2024-10-29 07:17] LABS: BASOPHILS ABSOLUTE AUTO 0.15 K/mm3 (0.00-0.23); BASOPHILS PERCENT AUTO 2 % (0-2); EOSINOPHILS ABSOLUTE AUTO 0.48 K/mm3 (0.00-0.68); EOSINOPHILS PERCENT AUTO 6 % (0-6); Hematocrit 40.3 % (37.0-53.0); Hemoglobin 11.7 g/dL (13.5-17.5); IMMATURE GRAN ABSOLUTE AUTO 0.04 K/mm3 (0.00-0.10); IMMATURE GRAN PERCENT AUTO 1 % (0-1); LYMPHOCYTES PERCENT AUTO 14 % (21-46); MONOCYTES ABSOLUTE AUTO 0.93 K/mm3 (0.16-1.47); MONOCYTES PERCENT AUTO 11 % (4-13); Mean Corpuscular HGB 23.4 pg (26.0-34.0); Mean Corpuscular Volume 81 fL (80-100); Mean Platelet Volume 9.8 fL (9.1-12.4); NEUTROPHILS ABSOLUTE AUTO 5.72 K/mm3 (1.96-9.15); NEUTROPHILS PERCENT AUTO 67 % (41-73); NRBC ABSOLUTE 0.02 K/mm3 (0.00-0.02); NRBC Auto 0.2 /100 WBC (0.0-0.2); Platelet Count 358 K/mm3 (150-400); RDW Coefficient Variation 29.8 % (11.7-14.2); RDW Standard Deviation 81.9 fL (35.1-46.3); Red Blood Cell Count 4.99 M/mm3 (4.30-5.90); White Blood Cell Count 8.52 K/mm3 (4.00-11.30)
[2024-10-29] MEDS ORDERED: Peg/Electrolytes 4,000 ML BTL PO SCH (08:00)
[2024-10-29 08:08] LABS: Albumin, Blood 3.5 g/dL (3.4-5.0); Albumin/Globulin Ratio 0.7 (0.8-1.8); Bilirubin, Total 0.9 mg/dL (0.1-1.0); Bun/Creatinine Ratio 18.3 (12.0-20.0); Calcium, Blood 9.9 mg/dL (8.5-10.1); Creatinine, Blood 0.82 mg/dL (0.60-1.20); Globulin, Blood 4.7 g/dL (2.2-4.0); Potassium, Blood 3.8 mmol/L (3.5-5.5); Total Protein, Blood 8.2 g/dL (6.4-8.2)
--- NOTE | 2024-10-29 09:36 | NUR ---
DR. DELGADO INFORMED THAT THE PT IS REFUSING HIS BOWEL PREP THIS MORNING. GUERRERO HARDIN RN AWARE WELL. PLAN TO KEEP PT NPO FOR EGD. THIS RN WILL LET DR. DELGADO AND GUERRERO MORGAN KNOW IF THE PT'S BOWEL BECOME CLEAR. PT AWARE THAT IS HIS BOWEL ARE NOT CLEAR HE WILL NTO RECIEVE THE COLONOSCOPY. HE IS OKAY WITH THAT AND IS STILL REFUSING BOWEL PREP.
[2024-10-29] MEDS ORDERED: Sod Phosphate/Sod Biphosphate 132 ML BTL PR ONE ×2 (14:10→15:05)
[2024-10-29] MEDS ORDERED: propofoL 50 ML IV ONE (14:40)
[2024-10-29] MEDS ORDERED: Lactated Ringer's 1,000 ML IV SCH (15:40)
[2024-10-29] MEDS ORDERED: NS 500 ML IV SCH (16:00)
[2024-10-29] MEDS ORDERED: Dopamine/Dextrose 250 ML IV SCH (16:00)
--- NOTE | 2024-10-29 16:08 | NUR ---
PT RECIEVED TWO FLEET ENEMAS PER DR. DELGADO BEFORE GOING TO THE [facility] FOR COLONOSCOPY AND EGD.
--- NOTE | 2024-10-29 16:21 | NUR ---
PT HAS 20G IV TO LEFT WRIST AND 20G IV TO LEFT AC THAT FLUSH WELL AND FLOW TO GRAVITY.
--- NOTE | 2024-10-29 16:22 | NUR ---
PT BROUGHT FROM PCU TO DAY SURGERY FOR PROCEDURE. History, Chart, Medications and Allergies reviewed before start of procedure. Lungs clear T/O to Auscultation. Patient confirms NPO status and agrees with scheduled surgery. Pre-Op teaching done. Pt verbalizes understanding. FAMILY AT BEDSIDE. PT BELONGINGS LEFT IN PERSONAL ROOM IN PCU.
--- NOTE | 2024-10-29 16:47 | NUR ---
10/29/24 1647 Marisabel Rivera 1630-MONITOR INTACT WITH CONTINUOUS PULSE OXIMETRY, CONTINUOUS END TITAL CO2, AND INTERMITTENT BLOOD PRESSURE.3-LEAD EKG REVIEWED WITH PHYSICIAN PRIOR TO START OF PROCEDURE.O2 VIA POM INTACT THROUGHOUT SEDATION/PROCEDURE.Bite Block Placed. DR. CORDERO PROVIDING ANESTHESIA. DOPAMINE DRIP STARTED @ 5 MCG/KG/IN. DEFIB PADS IN PLACE-SEE ANESTHESIA RECORD.
--- NOTE | 2024-10-29 16:49 | NUR ---
SHIF SUMMARY THE PT IS A&oX3-4, BUT CAN BUT FORGETFUL AND IS A POOR HISTORIAN. HE IS IMPULSIVE AND DOES NOT CALL APPROPRAITELY. THIS RN SAT OUTSIDE THE PT'S ROOM D/T FREQUENT NEEDS WITH THE BATHROOM. ON TELE HE HAS BEEN SR, BP SOFT BUT STABLE. HE HAS BEEN ON RA W/ SP02 >93%. WE HAVE NOT HAD MEASURED URINE OUTPUT D/T MIX W/ BOWELS AND OCCASIONAL INC. THE PT IS CURRENTLY DOWN FOR EGD AND COLONOSCOPY. FAMILY HAS BEEN IN THE ROOM AND UPDATED ON CARE. SEE NOTES FOR UPDATES.
--- NOTE | 2024-10-29 18:37 | NUR ---
PT BACK FROM COLONOSCOPY AND EGD. HE IS ON 3-4L NC TO MAINTAIN SP02 >93%, RESP RATE 12-16, HE CONVERTED FROM SR TO JUNCTIONAL AND FROM JUNCTIONAL TO AFIB WHILE IN PROCEDURE. THE PT IS CURRENTLY IN AFIB 60'S-80'S. DR. RODRIGUEZ MADE AWARE. THE PT DENIES ANY DISCOMFORTS AT THIS TIME. HE IS VERY SLEEPY AND RESTING WITH FAMILY IN THE ROOM. THE FAMILY IS HANGING OUT IN THE ROOM AND DR. DELGADO WILL ROUND WHEN HE IS DONE WITH HIS CURRENT CASE. THE PT'S BP IS SOFT, BUT STABLE AT THIS TIME. SEE NOTES FOR UPDATES.
[2024-10-30 05:00] VITALS: BP 96/74
--- NOTE | 2024-10-30 05:52 | NUR ---
SHIFT SUMMARY ASSUMED CARE OF PT AT 1900. PT IS A/OX4 BUT VERY LETHARGIC AT SHIFT CHANGE. DR DELGADO TO ROOM. EXPLAINED TO FAMILY AND PT FINDINGS OF PROCEDURE AND RESULTS. PT THEN PROCEEDED TO SLEEP T/O THE NOC UNTIL 0200 WHEN PT STOOD TO USE URINAL INDEPENDENTLY. PT BLADDER SCANNED DUE TO LIMITED OUTPUT, PT DENIES NEEDING TO UNRIATE MORE.
[2024-10-30] MEDS ORDERED: Omeprazole 20 MG CapCR PO SCH (06:00)
--- NOTE | 2024-10-30 08:15 | NUR ---
just wanted toclarify again as family is asking about hgb, dr khanna still does not want am labs
[2024-10-30 08:32] VITALS: BP 106/64
--- NOTE | 2024-10-30 10:19 | NUR ---
SPOKE WITH DR RODRIGUEZ TO CLARIFY THAT NO AM LABS WERE ORDERED, AND SHE IS OKY WITH NO AM LABS
[2024-10-30 12:55] LABS: Hematocrit 36.9 % (37.0-53.0); Hemoglobin 10.8 g/dL (13.5-17.5)
[2024-10-30] MEDS ORDERED: Lisinopril2.5 MG PO (15:05)
[2024-10-30] MEDS ORDERED: METO25ER PO (15:06)
[2024-10-30] MEDS ORDERED: ASPI81CH PO (15:06)
[2024-10-30] MEDS ORDERED: DOCU100 PO (15:07)
[2024-10-30] MEDS ORDERED: JARDIANCE10 MG PO (15:09)
[2024-10-30] MEDS ORDERED: PANT20 PO (15:10)
[2024-10-30] MEDS ORDERED: FURO20 PO (15:10)
[2024-10-30] MEDS ORDERED: SPIR25 PO (15:11)
--- NOTE | 2024-10-30 16:36 | NUR ---
MET WITH PATIENT AND FAMILY. DISCUSSED CONCERNS FOR DISCHARGE. PER FAMILY IDEAL SITUATION WOULD BE IF PATIENT MOVED TO [place] SO THEY COULD BE MORE AVALIABLE. PATIENT IS NOT WANTING TO DO THAT AT THIS TIME. DISCUSSED CODE STATUS AND FAMILY AND PATIENT WERE CLEAR THEY WANT FOR FULL CODE. DISCUSSED IMPLICATIONS. 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 PATIENT WAS AGREEABLE. UPDATED PROVIDER. 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
[2024-10-30] MEDS ORDERED: Spironolactone 12.5 MG TAB PO SCH (18:00)
--- NOTE | 2024-10-30 18:21 | NUR ---
PATIENTS DISCHARGE WAS POSTPNNED UNIL TOMORROW DUE TO FAMILY CONCERNS FOR HOME SAFETY AND LACK OF PATIENTS UNDERSTANDING OF NEW DIAGNOSIS AND SEVERAL NEW MEDCATIONS. PATIENT IS ORIENTED AND PLESANT, CODE STATUS WAS CHANGED FROM DNR TO FULL CODE PER PATIENT AND FAMILY REQUEST,
[2024-10-30 20:11] VITALS: BP 95/68
[2024-10-31 03:11] VITALS: BP 93/68
[2024-10-31 04:31] LABS: Hematocrit 37.7 % (37.0-53.0); Hemoglobin 10.6 g/dL (13.5-17.5)
[2024-10-31 04:51] LABS: CHOL/HDL RATIO 3.6; Cholesterol 109 mg/dL (50-200); HDL Cholesterol 30 mg/dL (>39); Low Density Lipoprotein Chol 60 mg/dL (0-110); Triglycerides 96 mg/dL (30-160); Very Low Density Lipoprot Chol 19 mg/dL (6-32)
--- NOTE | 2024-10-31 06:28 | NUR ---
SHIFT SUMMARY ASSUMED CARE OF PT AT APPROX 1900. PT A&O4, COOPERATIVE IN CARE AND ABLE TO MAKE NEEDS KNOWN. PT DENIES SOB AND CP/PRESSURE. PT USES URINAL BUT OVERNIGHT ONLY VIODED 150mL. ASKED PT TO URINATE PRIOR TO BLADDER SCAN AND PT STATED DIDN'T NEED TO. BLADDER SCAN SHOWED 278mL. NO BM OVERNIGHT FOR PENDING STOOL SAMPLE. PT ABLE TO REPOSITION SELF. BED IN LOWEST POSITION AND CALL LIGHT WITHIN REACH.
[2024-10-31 08:27] VITALS: BP 100/79
[2024-10-31] MEDS ORDERED: Lisinopril 5 MG Tab PO SCH (09:00)
[2024-10-31] MEDS ORDERED: Furosemide 20 MG Tab PO SCH (09:00)
[2024-10-31] MEDS ORDERED: Empagliflozin 10 MG TAB PO SCH (09:00)
[2024-10-31] MEDS ORDERED: Aspirin 81 MG Chew PO SCH (09:00)
[2024-10-31] MEDS ORDERED: Spironolactone 12.5 MG TAB PO SCH (09:00)
[2024-10-31 14:03] VITALS: BP 96/64
[2024-10-31 16:10] VITALS: BP 95/68
[2024-10-31] MEDS ORDERED: Omeprazole 20 MG CapCR PO SCH (16:30)
--- NOTE | 2024-10-31 18:01 | NUR ---
DISCHARGE UPDATE DISCHARGE PACKET GONE OVER WITH PT AND PT FAMILY AT 1730. PT DISCHARGED AT 1800 VIA WHEELCHAIR AND ON RA. PT ABLE TO TRANSFER SELF TO AND FROM WHEELCHAIR ON HIS OWN, TOLERATED WELL. PT PERSONAL BELONGINGS AND DISCHARGE PACKET WITH PT AT TIME OF DISCHARGE.
== END 2024-10-31 18:02 | disposition home health service (06) | DRG 811 ==
LOC: ER 10:53 → PCU 13:14
PROVIDERS: Internal Medicine; Internal Medicine Gastroenterology; Student in an Organized Health Care Education/Training Program; ADMIT Internal Medicine
PROC: 30233N1 Transfusion of Nonautologous Red Blood Cells into Peripheral Vein, Percutaneous Approach (ICD-10-PCS; 2024-10-25)
PROC: 5A09357 Assistance with Respiratory Ventilation, Less than 24 Consecutive Hours, Continuous Positive Airway Pressure (ICD-10-PCS; 2024-10-25)
PROC: 0DBN8ZZ Excision of Sigmoid Colon, Via Natural or Artificial Opening Endoscopic (ICD-10-PCS; 2024-10-29)
PROC: 0DB98ZX Excision of Duodenum, Via Natural or Artificial Opening Endoscopic, Diagnostic (ICD-10-PCS; principal; 2024-10-29 15:00)
PROC: 0DBP8ZZ Excision of Rectum, Via Natural or Artificial Opening Endoscopic (ICD-10-PCS; 2024-10-29 15:00)
PROC: 0DBL8ZZ Excision of Transverse Colon, Via Natural or Artificial Opening Endoscopic (ICD-10-PCS; 2024-10-29 15:00)
DX: D50.9 Iron deficiency anemia, unspecified (principal); I50.23 Acute on chronic systolic (congestive) heart failure; I24.89 Other forms of acute ischemic heart disease; Z66 Do not resuscitate; K64.8 Other hemorrhoids; K25.9 Gastric ulcer, unspecified as acute or chronic, without hemorrhage or perforation; K63.5 Polyp of colon; E87.6 Hypokalemia; I48.91 Unspecified atrial fibrillation; E78.5 Hyperlipidemia, unspecified; N40.0 Benign prostatic hyperplasia without lower urinary tract symptoms; H91.90 Unspecified hearing loss, unspecified ear; J45.909 Unspecified asthma, uncomplicated; I27.20 Pulmonary hypertension, unspecified; Z28.21 Immunization not carried out because of patient refusal; Z79.82 Long term (current) use of aspirin; Z79.899 Other long term (current) drug therapy; Z98.41 Cataract extraction status, right eye; Z98.890 Other specified postprocedural states; I35.0 Nonrheumatic aortic (valve) stenosis; F17.210 Nicotine dependence, cigarettes, uncomplicated
CPT/HCPCS: 36415; 36430; 71045; 80048; 80053; 80061; 80069; 83735; 83880; 84484; 85014; 85018; 85025; 85027; 85520; 85610; 85730; 86850; 86900; 86901; 86923; 88305; 88342; 93005; 93010; 94640; 94660; 94664; 94760; 94762; 96374; 97110; 97116; 97162; 97165; 97530; 97535; 99285-25; A9270; C8929; J1644; J1940; J2060; J2704; J2916; J3480; J7030; J7040; J7050; P9016; Q9957

== ENCOUNTER 2025-01-12 19:01 | Emergency (ER) | payer MEDICARE, OTHER ==
[~2025-01-12] VITALS: Ht 188 cm; Wt 69.0 kg
[~2025-01-12 19:01] MED LIST changes: +ASPI81CH PO; +DOCU100 PO; +FURO20 PO; +JARDIANCE10 MG PO; +Lisinopril2.5 MG PO; +METO25ER PO; +PANT20 PO; +SPIR25 PO
[2025-01-12 19:07] VITALS: BP 113/68
[2025-01-12] MEDS ORDERED: Oxymetazoline 0.05% Nasal Relief Spray 15mL BTL ONE (19:10)
== END 2025-01-12 20:44 | disposition home or self-care (01) ==
LOC: ER 19:01
DX: R04.0 Epistaxis (principal); J45.909 Unspecified asthma, uncomplicated; F17.210 Nicotine dependence, cigarettes, uncomplicated; Z79.82 Long term (current) use of aspirin; Z79.84 Long term (current) use of oral hypoglycemic drugs; Z79.899 Other long term (current) drug therapy
CPT/HCPCS: 30901; 99283-25; A9270